=== PATIENT | female | born 1950 | race Caucasian/White ===

== ENCOUNTER → 2016-06-29 | Outpatient (CLI) | payer BC ==
--- NOTE | 2016-06-30 13:47 | MM ---
Reason for exam: screening (asymptomatic). Last mammogram was performed 1 year ago. History: Patient is postmenopausal. Physical Findings: A clinical breast exam by your physician is recommended on an annual basis and results should be correlated with mammographic findings. MG Screening Mammo w CAD Bilateral CC and MLO view(s) were taken. Prior study comparison: June 27, 2015, bilateral MG screening mammo w CAD. January 03, 2014, bilateral MG screening mammo w CAD. December 22, 2012, bilateral digital screening mammo w/CAD. There are scattered fibroglandular densities. No significant changes when compared with prior studies. ASSESSMENT: Benign, BI-RAD 2 RECOMMENDATION: Routine screening mammogram of both breasts in 1 year.
== END ==
LOC: RADMAMWWP 08:07
PROVIDERS: ATTEND Internal Medicine Geriatric Medicine
DX: Z12.31 Encounter for screening mammogram for malignant neoplasm of breast (principal)

== ENCOUNTER → 2017-08-03 | Outpatient (CLI) | payer MEDICARE, BC ==
--- NOTE | 2017-08-04 10:02 | MM ---
Reason for exam: screening (asymptomatic). Last mammogram was performed 1 year and 1 month ago. History: Patient is postmenopausal. Physical Findings: A clinical breast exam by your physician is recommended on an annual basis and results should be correlated with mammographic findings. MG 3D Screening Mammo W/Cad Bilateral CC and MLO view(s) were taken. Prior study comparison: June 29, 2016, bilateral MG screening mammo w CAD. June 27, 2015, bilateral MG screening mammo w CAD. There are scattered fibroglandular densities. Stable benign calcifications. There is no discrete abnormality. No significant changes when compared with prior studies. ASSESSMENT: Benign, BI-RAD 2 RECOMMENDATION: Routine screening mammogram of both breasts in 1 year.
== END | disposition home or self-care (01) ==
LOC: RADMAMWWP 07:23
PROVIDERS: ATTEND Internal Medicine Geriatric Medicine
DX: Z12.31 Encounter for screening mammogram for malignant neoplasm of breast (principal)
CPT/HCPCS: 77063; 77067

== ENCOUNTER → 2018-08-12 | Outpatient (CLI) | payer MEDICARE ==
--- NOTE | 2018-08-16 08:12 | MM ---
Reason for exam: screening (asymptomatic). Last mammogram was performed 1 year ago. History: Patient is postmenopausal. Physical Findings: A clinical breast exam by your physician is recommended on an annual basis and results should be correlated with mammographic findings. MG 3D Screening Mammo W/Cad Bilateral CC and MLO view(s) were taken. Prior study comparison: August 03, 2017, bilateral MG 3d screening mammo w/cad. June 29, 2016, bilateral MG screening mammo w CAD. The breast tissue is heterogeneously dense. This may lower the sensitivity of mammography. No significant changes when compared with prior studies. ASSESSMENT: Benign, BI-RAD 2 RECOMMENDATION: Routine screening mammogram of both breasts in 1 year.
== END | disposition home or self-care (01) ==
LOC: RADMAMWWP 07:31
PROVIDERS: ATTEND Internal Medicine Geriatric Medicine
DX: Z12.31 Encounter for screening mammogram for malignant neoplasm of breast (principal)
CPT/HCPCS: 77063; 77067

== ENCOUNTER → 2019-09-08 | Outpatient (CLI) | payer MEDICARE ==
--- NOTE | 2019-09-11 09:16 | MM ---
Reason for exam: screening (asymptomatic). Last mammogram was performed 1 year and 1 month ago. History: Patient is postmenopausal. Physical Findings: A clinical breast exam by your physician is recommended on an annual basis and results should be correlated with mammographic findings. MG 3D Screening Mammo W/Cad Bilateral CC and MLO view(s) were taken. Prior study comparison: August 12, 2018, bilateral MG 3d screening mammo w/cad. August 03, 2017, bilateral MG 3d screening mammo w/cad. The breast tissue is heterogeneously dense. This may lower the sensitivity of mammography. There are benign appearing round calcifications bilaterally. There is no discrete abnormality. ASSESSMENT: Benign, BI-RAD 2 RECOMMENDATION: Routine screening mammogram of both breasts in 1 year.
== END | disposition home or self-care (01) ==
LOC: RADMAMWWP 07:10
PROVIDERS: ATTEND Internal Medicine Geriatric Medicine
DX: Z12.31 Encounter for screening mammogram for malignant neoplasm of breast (principal)
CPT/HCPCS: 77063; 77067

== ENCOUNTER → 2020-11-05 | Outpatient (CLI) | payer MEDICARE ==
--- NOTE | 2020-11-06 09:41 | MM ---
Reason for exam: screening (asymptomatic). Last mammogram was performed 1 year and 2 months ago. History: Patient is postmenopausal. Physical Findings: A clinical breast exam by your physician is recommended on an annual basis and results should be correlated with mammographic findings. MG 3D Screening Mammo W/Cad Bilateral CC and MLO view(s) were taken. Prior study comparison: September 08, 2019, bilateral MG 3d screening mammo w/cad. August 12, 2018, bilateral MG 3d screening mammo w/cad. The breast tissue is heterogeneously dense. This may lower the sensitivity of mammography. Stable benign calcifications. There is no discrete abnormality. No significant changes when compared with prior studies. ASSESSMENT: Benign, BI-RAD 2 RECOMMENDATION: Routine screening mammogram of both breasts in 1 year.
== END | disposition home or self-care (01) ==
LOC: RADMAMWWP 08:02
PROVIDERS: ATTEND Internal Medicine Geriatric Medicine
DX: Z12.31 Encounter for screening mammogram for malignant neoplasm of breast (principal); Z78.0 Asymptomatic menopausal state
CPT/HCPCS: 77063; 77067

== ENCOUNTER → 2021-09-22 | Outpatient (CLI) | payer MEDICARE ==
[2021-09-22 11:02] LABS: Basophils # (A) 0.06 X 10*3/uL (0.00-0.10); Eosinophils % (A) 3.2 %; HCT 38.2 % (37.2-46.3); HGB 12.9 g/dL (12.0-15.0); Immature Grans, Automated 2.2 %; Lymphocytes # (A) 2.43 X 10*3/uL (0.90-5.00); Lymphocytes % (A) 38.7 %; MCH 32.1 pg (27.0-32.0); MCHC 33.8 g/dL (32.0-37.0); Mean Platelet Volume 10.4 fL (9.5-12.2); Monocytes # (A) 0.53 X 10*3/uL (0.20-1.00); Monocytes % (A) 8.4 %; NRBC Per 100 WBC 0 /100 WBCS (0.0-0.0); Neutrophils # (A) 2.92 X 10*3/uL (1.80-7.70); Neutrophils % (A) 46.5 %; Platelet Count 206 X 10*3/uL (140-440); RBC 4.02 X 10*6/uL (4.10-5.20); RDW 12.9 % (11.5-14.5); WBC 6.28 X 10*3/uL (4.50-10.00)
[2021-09-22 11:34] LABS: ALT 26 U/L (8-44); AST 19 U/L (13-35); African American GFR (CKD) 66.6 (60.0-200.0); Albumin 4.3 g/dL (3.8-4.9); Albumin/Globulin Ratio 2.15 (1.60-3.17); Alkaline Phosphatase 66 U/L (41-126); Blood Urea Nitrogen 23.7 mg/dL (9.0-27.0); Calcium 9.3 mg/dL (8.7-10.3); Carbon Dioxide 19.7 mmol/L (20.0-27.5); Chloride 106 mmol/L (96-109); Chol/HDL Ratio 2.83 Ratio; Glucose 160 mg/dL (70-110); Non-African American GFR(CKD) 57.4 (60.0-200.0); Potassium 4.8 mmol/L (3.5-5.5); Sodium 138 mmol/L (135-145); Total Protein 6.3 g/dL (6.2-8.2)
[2021-09-24 10:14] LABS: NRBC Per 100 WBC 0 /100 WBCS (0.0-0.0)
== END | disposition home or self-care (01) ==
LOC: LABWHC1 07:17
PROVIDERS: ATTEND Internal Medicine Geriatric Medicine
DX: E03.9 Hypothyroidism, unspecified (principal); E11.9 Type 2 diabetes mellitus without complications
CPT/HCPCS: 36415; 80048; 80053; 80061; 83036; 84439; 84443; 85025; 85610

== ENCOUNTER → 2021-12-04 | Outpatient (CLI) | payer MEDICARE ==
--- NOTE | 2021-12-05 07:46 | MM ---
Reason for Exam: Screening (asymptomatic). Last mammogram was performed 1 year(s) and 1 month(s) ago. Patient History: Menarche at age 15. First Full-Term at age 24. Postmenopausal. Patient has history of breast feeding. Risk Values: Tatiana 5 year model risk: 1.5%. NCI Lifetime model risk: 4.8%. Prior Study Comparison: 06/29/2016 Bilateral Screening Mammogram, [facility]. 08/03/2017 Bilateral Screening Mammogram, [facility]. 08/12/2018 Bilateral Screening Mammogram, [facility]. 09/08/2019 Bilateral Screening Mammogram, [facility]. 11/05/2020 Bilateral Screening Mammogram, [facility]. Tissue Density: There are scattered fibroglandular densities. Findings: Analyzed By CAD. There is no suspicious group of microcalcifications or new suspicious mass in either breast. Overall Assessment: Negative, BI-RAD 1 Management: Screening Mammogram of both breasts in 1 year. A clinical breast exam by your physician is recommended on an annual basis and results should be correlated with mammographic findings. Electronically signed and approved by: Alexandre Bird M.D. Radiologis
== END | disposition home or self-care (01) ==
LOC: RADMAMWWP 08:00
PROVIDERS: ATTEND Internal Medicine Geriatric Medicine
DX: Z12.31 Encounter for screening mammogram for malignant neoplasm of breast (principal); Z78.0 Asymptomatic menopausal state
CPT/HCPCS: 77063; 77067

== ENCOUNTER → 2022-12-07 | Outpatient (CLI) | payer MEDICARE ==
--- NOTE | 2022-12-07 08:52 | BD ---
EXAMINATION TYPE: Axial Bone Density DATE OF EXAM: 12/07/2022 CLINICAL HISTORY: 72 years old Female. ICD-10 CODE: M81.0 AGE-RELATED OSTEOPOROSIS W/ Height: 65 Weight: 241.2 FRAX RISK QUESTIONS: Alcohol (3 or more units per day): no Family History (Parent hip fracture): no Glucocorticoids (More than 3mos): no History of Fracture in Adulthood: yes Secondary Osteoporosis: 1. Type 1 Diabetes: no 2. Hyperthyroidism: no 3. Menopause before 45: no 4. Malnutrition:no 5. Chronic liver disease: no Rheumatoid Arthritis: no Current Tobacco Use: no RISK FACTORS HISTORY OF: Hip Fracture (Right/Left): no Spine Fracture: no History of Wrist Fracture: no Surgery to Spine/Hip(right/left)/Wrist (right/left): no Family History of Osteoporosis: no Active: somewhat Diet low in dairy products/other sources of calcium: no Postmenopausal woman: yes Take estrogen and/or progesterone medications: no Lost more than 2 inches in height since high school: no Frequent falls: no Poor Health: no Hyperparathyroidism: no Adrenal Insufficiency: no MEDICATIONS: Prednisone or other steroids: no Thyroid Medications: Levothyroxine How Long: Past 15 years Osteoporosis Medications: no Additional Medications: BP Meds, Cholesterol Meds, Vit D, Magnesium, Metformin Additional History: EXAM MEASUREMENTS: Bone mineral densitometry was performed using the [employer] System. Bone mineral density as measured about the Lumbar spine is: ----- L1-L4(G/cm2): 1.793 T Score Values are as follows: ----- L1: 2.6 ----- L2: 3.8 ----- L3: 6.5 ----- L4: 6.3 ----- L1-L4: 5.1 Z Score Values are as follows: ----- L1: 3.1 ----- L2: 4.3 ----- L3: 7.0 ----- L4: 6.8 ----- L1-L4: 5.6 Bone mineral density has: increased 15.5 % since study of: 06/27/2015 Bone mineral density about the R hip (g/cm2): 1.555 Bone mineral density about the L hip (g/cm2): 1.410 T Score values are as follows: -----R Neck: 5.2 -----L Neck: 1.6 -----R Total: 4.3 -----L Total: 3.2 Z Score values are as follows: -----R Neck: 6.2 -----L Neck: 2.6 -----R Total: 5.0 -----L Total: 3.8 Bone mineral density has: increased 11.9 % since study of: 06/27/2015 FRAX%s: The graph provided illustrates a 7.5% chance for a major osteoporotic fx and a 0.1% chance fo r the hips probability for fx in 10 years time. IMPRESSION: Normal (Values between +1 and -1 indicate normal bone mass). Consider repeating this study in 5 year s or sooner if there is some new clinical indication. NOTE: T-SCORE=SD OF THE YOUNG ADULT MEAN.
--- NOTE | 2022-12-08 10:04 | MM ---
Reason for Exam: Screening (asymptomatic). Last screening mammogram was performed 12 month(s) ago. Patient History: Menarche at age 15. First Full-Term at age 24. Postmenopausal. Patient has history of breast feeding. Risk Values: Tatiana 5 year model risk: 1.5%. NCI Lifetime model risk: 4.5%. Prior Study Comparison: 09/08/2019 Bilateral Screening Mammogram, [facility]. 11/05/2020 Bilateral Screening Mammogram, [facility]. 12/04/2021 Bilateral MG 3D screening mammo w/cad, [facility]. Tissue Density: There are scattered fibroglandular densities. Findings: Analyzed By CAD. After symmetrical and stable. No significant interval change 7. No suspicious groups of microcalcifications, spiculated or lobular masses, architectural distortion or other secondary signs of malignancy are mammographically apparent.Pattern is symmetrical and stable. No significant interval change. No suspicious groups of microcalcifications, spiculated or lobular masses, architectural distortion or other secondary signs of malignancy are mammographically apparent. Overall Assessment: Benign, BI-RAD 2 Management: Screening Mammogram of both breasts in 1 year. A negative mammogram report should not preclude additional follow up of suspicious palpable abnormalities. Patient should continue monthly self breast exam. A clinical breast exam by your physician is recommended on an annual basis and results should be correlated with mammographic findings. Electronically signed and approved by: David Cruz D.O. Radiologis
== END | disposition home or self-care (01) ==
LOC: RADMAMWWP 07:55
PROVIDERS: ATTEND Internal Medicine Geriatric Medicine
DX: Z12.31 Encounter for screening mammogram for malignant neoplasm of breast (principal); M81.0 Age-related osteoporosis without current pathological fracture; Z78.0 Asymptomatic menopausal state
CPT/HCPCS: 77063; 77067; 77080

== ENCOUNTER → 2023-12-09 | Outpatient (CLI) | payer MEDICARE ==
--- NOTE | 2023-12-09 11:40 | MM ---
Reason for Exam: Screening (asymptomatic). Last screening mammogram was performed 12 month(s) ago. Patient History: Menarche at age 15. First Full-Term at age 24. Postmenopausal. Patient has history of breast feeding. Risk Values: Tatiana 5 year model risk: 1.6%. NCI Lifetime model risk: 4.3%. Prior Study Comparison: 11/05/2020 Bilateral Screening Mammogram, [facility]. 12/04/2021 Bilateral MG 3D screening mammo w/cad, [facility]. 12/07/2022 Bilateral MG 3D screening mammo w/cad, [facility]. Tissue Density: There are scattered areas of fibroglandular density. Findings: Analyzed By CAD. Right breast: There is no suspicious group of microcalcifications or new suspicious mass. Left breast: There is no suspicious group of microcalcifications or new suspicious mass. Overall Assessment: Negative, BI-RAD 1 Management: Screening Mammogram of both breasts in [address] [facility] will attempt to contact patient to return for supplemental views and ultrasound if indicated. Patient should continue monthly self-breast exams. A clinical breast exam by your physician is recommended on an annual basis. This exam should not preclude additional follow-up of suspicious palpable abnormalities. Note on Tatiana scores and lifetime risk: 1. A Tatiana score greater than 3% is considered moderate risk. If this is the case, consider specialist referral to assess eligibility for a risk reducing agent. 2. If overall lifetime risk for the development of breast cancer is 20% or higher, the patient may qualify for future screening with alternating mammogram and breast MRI. [facility], , 12/09/2023 11:37 AM. Electronically signed and approved by: Ever Strong DO
== END | disposition home or self-care (01) ==
LOC: RADMAMWWP 08:26
PROVIDERS: ATTEND Internal Medicine Geriatric Medicine
CPT/HCPCS: 77063; 77067